=== PATIENT | male | born 1960 | race Caucasian/White ===

== ENCOUNTER → 2016-09-29 | Outpatient (CLI) | payer OTHER ==
[~2016-09-29] VITALS: Ht 175.3 cm; Wt 85.3 kg
[~2016-09-29] MED LIST: AMITRIPTYLINE H10 M3 PO; IBUPROFEN 600600 M1 PO; NORCO 5-325 TA1 EACH PO; PERCOCET 5-3251 EACH PO
--- NOTE | ~2016-09-29 | HPC ---
[facility] [place] [address] PAIN MANAGEMENT CONSULTATION Name: JOSÉ ANDERSON Room #: REG [facility] [id number] Admission: 09/29/16 Attend Phys: Kelly Moulton MD Discharge: Date of : 56 Report #: [id number] THIS REPORT FOR: //name// CC: Shahram Law DATE OF SERVICE: 09/29/2016 FOLLOWUP COMPLAINT: Here for another epidural injection. My pain has returned with pain down into the right shoulder and involving the elbow. FOLLOWUP HISTORY: The patient is a 56-year-old gentleman who has been seen in the pain clinic in the past because of cervical radiculopathy. As you recall, he has had pain and discomfort involving the right shoulder. He works at [employer]. 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 States that he does a significant amount of work with his hands above his hand. He has noted that after the last epidural steroid injection that he had gotten good relief. At this juncture, he has noted a return of pain and discomfort involving the right shoulder down into the right arm with numbness, tingling and weakness to the level of his elbow. He feels that another epidural steroid injection could prove beneficial. He has returned today for evaluation and for another treatment. PHYSICAL EXAMINATION: Blood pressure is 134/88, pulse 65, respiratory rate 16, room air saturation 97%. The patient's BMI is 27.8. He has not fallen since we saw him last. He is experiencing pain and discomfort in the neck and right shoulder area with pain radiating down into his arm. IMPRESSION: Cervical radiculopathy, which improved greater than 50% after the last epidural steroid injection. The patient would like to proceed with another. RECOMMENDATIONS: We discussed treatment options. Risks and benefits again were discussed regarding the cervical epidural steroid injection. He elects to proceed. PROCEDURE NOTE: The patient was placed in the prone position. Fluoroscopy was used to identify the C7-T1 interspace. This area had been sterilely prepped with Betadine and infiltrated with 0.25% bupivacaine. A total of 120 mg triamcinolone was injected. The patient tolerated the procedure well. There were no complications. His pain decreased from 7 to 4 at the time of discharge. There was a total of 12 seconds fluoroscopy time was used. He will follow up in the future as needed. We would like to thank you [place] [address] PAIN MANAGEMENT CONSULTATION Name: JOSÉ ANDERSON [facility] #: [facility] [id number] Admission: 09/29/16 Attend Phys: Kelly Moulton MD Discharge: Date of : 56 Report #: [id number] in his care. A script for amitriptyline 10 mg 1 p.o. at bedtime has been provided as well as oxycodone 5/325 one p.o. q. 6 hours p.r.n. pain. <ELECTRONICALLY SIGNED> By: Kelly Moulton MD 10/17/16 1018 [id number] Kelly Moulton MD /nt
[2016-09-29 14:26] VITALS: BP 134/88
== END | disposition home or self-care (01) ==
LOC: PAIN 07:41
DX: M54.12 Radiculopathy, cervical region (principal); Z87.891 Personal history of nicotine dependence

== ENCOUNTER → 2016-12-08 | Outpatient (CLI) | payer OTHER ==
--- NOTE | ~2016-12-08 | HPC ---
[facility] [address] [address] PAIN MANAGEMENT CONSULTATION Name: JOSÉ ANDERSON Room #: REG [facility] Loida#: [id number] Admission: 12/08/16 Attend Phys: Kelly Moulton MD Discharge: Date of : 56 Report #: [id number] THIS REPORT FOR: //name// CC: Shahram Law DATE OF SERVICE: 12/08/2016 FOLLOWUP COMPLAINT: Pain improved after the last injection, but has returned now. FOLLOWUP HISTORY: The patient is a 56-year-old gentleman who has been seen in the pain clinic because of cervical radiculopathy. He works and his job entails lots of overhead activities. He has noticed that his pain and discomfort has returned with pain radiating down into his right shoulder and to the level of his elbow. He rates it as a 7/10. He describes it as constant, sharp and steady when it is present. It is exacerbating by turning his head, raising his arms over his head. He notes that rest can be helpful. PHYSICAL EXAMINATION: Blood pressure 141/83, pulse 73, respiratory rate 14, room air saturation is 97. The patient has pain and discomfort which is exacerbated by raising his hands over his head. IMPRESSION: Cervical radiculopathy. RECOMMENDATIONS: We discussed treatment options with the patient. Risks and benefits of another epidural steroid injection were again reviewed. The patient gleaned greater than 70% improvement after the last injection. He would like to proceed again. PROCEDURE NOTE: The patient was placed in the prone position. Fluoroscopy was used to identify the C7-T1 interspace. This area had been sterilely prepped with Betadine and infiltrated with 0.25% bupivacaine. A total of 120 mg triamcinolone was injected. The patient tolerated the procedure well. He remained in the pain clinic for an appropriate amount of time. His pain score decreased from 7 to 0 at the time of discharge. He will follow up in the future as needed. We would like to thank you for letting us participate in his care. We hope he continues to improve. By: [id number] Kelly Moulton MD /roman
[2016-12-08 13:53] VITALS: BP 141/83
== END ==
LOC: PAIN 07:10
DX: M54.12 Radiculopathy, cervical region (principal)

== ENCOUNTER → 2017-02-16 | Outpatient (CLI) | payer OTHER ==
[~2017-02-16] VITALS: Ht 175.3 cm; Wt 83.3 kg
--- NOTE | ~2017-02-16 | HPC ---
[facility] [place] [address] PAIN MANAGEMENT CONSULTATION Name: JOSÉ ANDERSON Room #: REG [facility] [id number] Admission: 02/16/17 Attend Phys: Kelly Moulton MD Discharge: Date of : 56 Report #: [id number] THIS REPORT FOR: //name// CC: ANNELIESE Nieves DATE OF SERVICE: 02/16/2017 FOLLOWUP COMPLAINT: "Pain improved after the last cervical epidural steroid injection, but has started to reoccur now with numbness, weakness and tenderness down into my arm. I got greater than 50% improvement after the last injection." FOLLOWUP HISTORY: The patient is a 56-year-old gentleman who has been seen in the pain clinic because of cervical radiculopathy. As you recall, he works [employer]. He does a significant amount of work, which is overhead. With this activity, he notes worsening of pain and discomfort in his neck and in his shoulder with radiation down into his arm. He notes that when he is carrying an object and pain starts in his arm, he must place the object in the other arm or put it down because he is unable to continue to carry it. He describes it as an 8/10 at this juncture. He notes pain is worse when he is turning his head or raising his arms over his head. PHYSICAL EXAMINATION: Blood pressure 153/97, pulse 71, respiratory rate 16, room air saturation is 100. The patient has pain involving the right neck, deltoid, forearm and pain down into his fingers with numbness, weakness and decreased sensitive in his fingers. RECOMMENDATIONS: We discussed treatment options with the patient. He has gleaned greater than 70% improvement in his pain and discomfort after cervical epidural steroid injection. He has returned to the pain clinic for another injection. We will petition his insurance company for a cervical epidural steroid injection today. PROCEDURE NOTE: The patient's insurance company was notified of the patient's recurrence of cervical radiculopathy with numbness, tingling and weakness involving the right hand. The patient has gleaned greater than 70% improvement after cervical epidural steroid injections. He has been denied at this juncture. The patient can return in the future for a cervical epidural steroid injection when his insurance company deems reasonable. [address] [address] PAIN MANAGEMENT CONSULTATION Name: JENNIFERMERLINEJOSÉKASANDRA HULL Room #: REG [facility]edy#: [id number] Admission: 02/16/17 Attend Phys: Kelly Moulton MD Discharge: Date of : 56 Report #: [id number] We would like to thank you for letting us participate in his care. We hope he continues to improve. <ELECTRONICALLY SIGNED> By: Kelly Moulton MD 02/21/17 0810 [id number] [id number] Kelly Moulton MD /nt
[2017-02-16 11:09] VITALS: BP 153/97
== END | disposition home or self-care (01) ==
LOC: PAIN 06:52
DX: M50.90 Cervical disc disorder, unspecified, unspecified cervical region (principal); M54.12 Radiculopathy, cervical region; Z87.891 Personal history of nicotine dependence

== ENCOUNTER → 2017-04-27 | Outpatient (CLI) | payer OTHER ==
[~2017-04-27] VITALS: Ht 175.3 cm; Wt 86.6 kg
--- NOTE | ~2017-04-27 | HPC ---
[facility] [place] [place] [address] PAIN MANAGEMENT CONSULTATION Name: JUSTINJOSÉ COLEMANBON Room #: REG Dario Loida#: [id number] Admission: 04/27/17 Attend Phys: Kelly Moulton MD Discharge: Date of : 56 Report #: [id number] THIS REPORT FOR: //name// CC: Shahram Law DATE OF SERVICE: 04/27/2017 CHIEF COMPLAINT: Pain has returned somewhat. FOLLOWUP HISTORY: The patient is a 57-year-old gentleman who has been seen in the pain clinic because of cervical radiculopathy. As you recall, he works at [employer]. 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 He has noted some worsening of this pain and discomfort, which has returned and he rates it as a 5 most of the time and it is a 7 today. He notes that raising his hands over his head are problematic. He notes pain in his right shoulder with pain radiating down into his right arm and involving his fingers. He also notes pain in the right lower back area. IMPRESSION: Cervical radiculopathy. RECOMMENDATIONS: We discussed treatment options with the patient. The patient has received greater than 70% improvement in the past. He returns today for another epidural steroid injection. Risks and benefits of the procedure were again reviewed with the patient and possible complications were discussed. He elects to proceed. PROCEDURE NOTE: The patient was placed in the prone position. Fluoroscopy was used to identify the C7-T1 interspace. This area had been sterilely prepped with Betadine and infiltrated with 0.25% bupivacaine. A total of 120 mg triamcinolone was injected. The patient tolerated the procedure well. There were no complications. A script for oxycodone 5/325 one p.o. q.8 hours p.r.n. has been written, total of 50 tablets. We would like to thank you for letting us participate in his care. We hope he continues to improve. By: [id number] Kelly Moulton MD /
[2017-04-27 13:07] VITALS: BP 166/98
== END | disposition home or self-care (01) ==
LOC: PAIN 06:33
DX: M54.12 Radiculopathy, cervical region (principal); Z98.890 Other specified postprocedural states; Z87.891 Personal history of nicotine dependence

== ENCOUNTER → 2017-08-10 | Outpatient (CLI) | payer OTHER ==
[~2017-08-10] VITALS: Ht 175.3 cm; Wt 86.2 kg
[~2017-08-10] MED LIST changes: +MEDROLDOSEPACK PO; +MOBIC15 MG PO; +VITAMIN B COMP1 EACH PO
--- NOTE | ~2017-08-10 | HPC ---
[facility] [place] [address] PAIN MANAGEMENT CONSULTATION Name: JOSÉ ANDERSON Room #: REG Dario SinclairLedyMaryLedy#: [id number] Admission: 08/10/17 Attend Phys: Kelly Moulton MD Discharge: Date of : 56 Report #: [id number] THIS REPORT FOR: //name// CC: Shahram Law DATE OF SERVICE: 08/10/2017 FOLLOWUP COMPLAINT: The insurance company has precerted me and I have come for my cervical epidural steroid injection. HISTORY OF PRESENT ILLNESS: The patient is a 57-year-old gentleman who has been followed in the pain clinic. 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 When he does this, he notes worsening of pain and discomfort involving his right arm. It involves his right neck and radiates down into his fingers with numbness and weakness. He has returned to the pain clinic with a worsening of his pain and discomfort. Overall, the injections improve his pain by greater than 50%. He would like to proceed with another epidural steroid injection today. PHYSICAL EXAMINATION: Blood pressure 152/83, pulse 62, respiratory rate 16, room air saturation 100, height 5 feet 9 inches, weight 190 pounds, BMI is 28.1. The patient has pain and discomfort in the right neck with pain radiating down the shoulder, forearm, and numbness and tingling in his fingers. IMPRESSION: Right cervical radiculopathy. RECOMMENDATIONS: We discussed treatment options with the patient. Risks and benefits of the injection were again reviewed. Possible complications, which could include but are not limited to infection, increased muscle soreness, headache, bleeding, nerve damage were discussed. He elects to proceed. PROCEDURE NOTE: The patient was placed in the prone position. Fluoroscopy was used to identify the C7-T1 interspace. This area had been sterilely prepped with Betadine and infiltrated with 0.25% bupivacaine. Total of 120 mg triamcinolone was injected. The patient tolerated the procedure well. There were no complications. A total of 18 seconds fluoroscopy time was used. The patient will follow up in the future as needed. We would like to thank you for letting us participate in his care. We hope he continues to improve. By: [id number] Kelly Moulton MD /CHANDRAKANT
[2017-08-10 12:41] VITALS: BP 156/94
== END | disposition home or self-care (01) ==
LOC: PAIN 06:50
DX: M54.12 Radiculopathy, cervical region (principal); G89.29 Other chronic pain; Z87.891 Personal history of nicotine dependence; Z79.891 Long term (current) use of opiate analgesic

== ENCOUNTER → 2017-12-05 | Outpatient (CLI) | payer OTHER ==
[~2017-12-05] VITALS: Ht 175.3 cm; Wt 85.7 kg
[~2017-12-05] MED LIST changes: +VITAMIN D3400 UNIT PO
--- NOTE | ~2017-12-05 | HPC ---
[facility] [place] [address] PAIN MANAGEMENT CONSULTATION Name: JOSÉ ANDERSON Room #: REG ALFREDO BismarkMaryLedy#: [id number] Admission: 12/05/17 Attend Phys: Kelly Moulton MD Discharge: Date of : 56 Report #: [id number] THIS REPORT FOR: //name// CC: Shahram Law DATE OF SERVICE: 12/05/2017 FOLLOWUP COMPLAINT: Return of the pain in the neck. FOLLOWUP HISTORY: The patient is a 57-year-old gentleman who has been followed in the pain clinic because of pain and discomfort. As you recall, he used to work for [employer] on their campus. He worked heating an air conditioning. As you could imagine, there is quite a bit of looking up and down in motion of the neck and hands in this fashion. Overall, things continue to worsen in these areas for him. Unfortunately, he had to stop working. He no longer works for [employer]. He has noted a worsening of pain and discomfort at this juncture. He has returned to the pain clinic for an epidural steroid injection. Cervical epidural steroid injection in the past have been quite beneficial. He has noted worsening of pain and discomfort in his right shoulder. He is having pain radiating down into his fingers. He rates the pain as 5-6 at this juncture. Turning his head, raising his arms over his head and other activities of daily living are now quite problematic. He would like to proceed with a cervical epidural steroid injection given that he is clean, reasonably good relief from this in the past. ALLERGIES: No known drug allergies. CURRENT MEDICATIONS: 1. Vitamin D. 2. Meloxicam 15 mg 1 p.o. daily, oxycodone 5/325, multivitamin, and B complex. PAIN ASSESSMENT: 1. History of osteoarthritis, has arthritis in his back and neck. 2. Height 5 feet 9, weight 189 pounds, BMI is 27.9. 3. Vital Signs: Blood pressure 135/87, pulse 78, respiratory rate 14 and room air saturation is 100%. 4. Pain intensity 5-6/10. 5. Fall risk. The patient has not fallen in the last 3 months. 6. Blood thinner. The patient is not on a blood thinner. 7. History of hypertension. The patient is being treated for hypertension. 8. Opioid therapy. The patient has not received opioids for greater than 6 weeks. 9. Risk management tool. 10. [place] [address] PAIN MANAGEMENT CONSULTATION Name: JOSÉ ANDERSON Room #: REG [facility]#: [id number] Admission: 12/05/17 Attend Phys: Kelly Moulton MD Discharge: Date of : 56 Report #: [id number] 11. Recreational drug use. The patient denies ever using recreational drugs. 12. Tobacco: The patient is a former smoker. 13. Alcohol. The patient does drink 2-3 beverages daily. PHYSICAL EXAMINATION: GENERAL: The patient is a well-developed, well-nourished white male. He appears his stated age. Orientation, the patient is alert and oriented x 3. APPEARANCE: The patient's affect is appropriate. HEENT: Normocephalic, atraumatic. Extraocular eye muscles intact. Hearing within normal limits. Mucous membranes moist. Sclerae are not injected. NECK: The patient has some limited range of motion of his neck. Cervical extension and flexion do increase some pain and discomfort with some pain radiating down into his arm on the right side at the shoulder. Left and right bending, left and right lateral rotation, left and right rotation all increase pain and discomfort in this area. CHEST: Clear to auscultation. HEART: Regular rate. ABDOMEN: Nontender. MUSCULOSKELETAL: Muscle strength is judged to be 5/5 for the major muscle groups of the upper extremity as well as with corporate banking officer strength with symmetry of muscles. Musculoskeletal without significant scoliosis, kyphosis, or lordosis. The patient has lower extremity muscle strength 5/5 with symmetry. Sensation in the lower extremities is within normal limits and without significant problem. IMPRESSION: 1. Cervical radiculopathy, which has improved in the past with cervical epidural steroid injections. 2. Hypertension. 3. Recent senior living from job secondary to above. RECOMMENDATIONS: We discussed treatment options with the patient. Risks and benefits of an epidural steroid injection were explained. Possible complication of the procedure were discussed. They include but are not limited to infection, increased muscle soreness, headache, bleeding, worsening of pain, cervical headache or muscle trauma/nerve trauma. The patient elects to proceed. PROCEDURE NOTE: The patient was assisted to the treatment room. He was helped on the examination table. He is lying in the prone position. His back was sterilely prepped with Betadine. The fluoroscopy machine using anterior, posterior as well as lateral imaging was used to note the target area. At C7/T1, this area was infiltrated with 0.25% bupivacaine. A 17-gauge Tuohy with loss of resistance technique was used to gain access to the epidural space. There was no CSF, heme or paresthesia. A total of 120 mg triamcinolone was injected. The patient tolerated the procedure well. His pain decreased from 6 to 2 at the time of discharge. He will follow up in the future as needed. [address] [place] [address] PAIN MANAGEMENT CONSULTATION Name: JENNIFERMERLINEJOSÉ DELLA Room #: REG [facility].#: [id number] Admission: 12/05/17 Attend Phys: Kelly Moulton MD Discharge: Date of : 56 Report #: [id number] Total of 11 seconds fluoroscopy time was used. We would like to thank you for letting us participate in his care. We hope he continues to improve. By: [id number] Kelly Moulton MD /nt
[2017-12-05 09:08] VITALS: BP 135/87
== END | disposition home or self-care (01) ==
LOC: PAIN 06:58
DX: M54.12 Radiculopathy, cervical region (principal); I10 Essential (primary) hypertension; Z87.891 Personal history of nicotine dependence; M19.90 Unspecified osteoarthritis, unspecified site; Z79.899 Other long term (current) drug therapy

== ENCOUNTER → 2018-08-28 | Outpatient (CLI) | payer OTHER ==
[~2018-08-28] VITALS: Ht 175.3 cm; Wt 88.5 kg
--- NOTE | ~2018-08-28 | HPC ---
[facility] [place] [address] PAIN MANAGEMENT CONSULTATION Name: JOSÉ ANDERSON Room #: REG [facility] [id number] Admission: 08/28/18 Attend Phys: Kelly Moulton MD Discharge: Date of : 56 Report #: [id number] THIS REPORT FOR: //name// CC: Shahram Law DATE OF SERVICE: 09/04/2018 CHIEF COMPLAINT: The pain has returned and would like to get another injection. FOLLOWUP HISTORY: The patient is a 58-year-old gentleman who has been followed in the pain clinic because of cervical radiculopathy. He has undergone epidural steroid injections in the past, found benefit. He used to work at [employer]. 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 Over the years, he has noted a worsening of his pain and has had pain, which has been problematic since that time. He episodically undergo cervical epidural steroid injection with reasonably good improvement in his pain. He has returned today with a recurrence of pain and would like to undergo another injection. He has not had any problems with the injections in the past. Notes that he is having pain that is radiating down into his right shoulder, right arm and notes some numbness, soreness and tenderness. Rates his pain as 7/10. ALLERGIES: No known drug allergies. CURRENT MEDICATIONS: , Vitamin D3 400 units, Meloxicam 15 mg, Percocet 5/325 one p.o. q.4-6 hours p.r.n. pain. PAIN CLINIC ASSESSMENT/PQRS: 1. History of osteoarthritis. The patient has arthritic changes in his back and neck. He has not been treated for rheumatoid arthritis. 2. Height 5 feet 9 inches, weight 195 pounds. BMI is 28.8. 3. Vital Signs: Blood pressure 147/92, pulse 78, respiratory rate 16, room air saturation 97%. 4. Pain intensity 03/19. 5. Fall risk. The patient has not fallen in the last 3 months. 6. Blood thinner. The patient is not on blood thinning medication. 7. Hypertension. The patient is being treated for hypertension. 8. Opioid therapy. The patient is not on her regimen of opioid medication use over 6 week period of time. 9. Risk assessment tool, low for opioid use. 10. Functional assessment tool. 11. Recreational drug use. The patient denies use of recreational drugs. 12. Alcohol: The patient occasionally drinks alcoholic beverages approximately 2 [place] [address] PAIN MANAGEMENT CONSULTATION Name: JOSÉ ANDERSON Room #: REG [facility]#: [id number] Admission: 08/28/18 Attend Phys: Kelly Moulton MD Discharge: Date of : 56 Report #: [id number] 13. Tobacco: Again, the patient is a former smoker. Does not smoke at this time. PHYSICAL EXAMINATION: GENERAL: The patient is a well-developed, well-nourished white male. Appears his stated age. He is alert and oriented x 3. His affect is appropriate. Speech is fluent. HEENT: Normocephalic, atraumatic. Extraocular eye muscles intact. Sclerae nonicteric. Mucous membranes are moist. NECK: Without adenopathy or JVD. The patient has some pain and discomfort in his neck. Notes increased pain which is radiating down into the left arm with numbness, tingling and discomfort involving the left arm area. Left lateral bending cause some increased pain and discomfort down into the arm. Positive Spurling side. CHEST: Clear to auscultation. HEART: Regular rate. S1, S2. ABDOMEN: Nontender. Bowel sounds present. MUSCULOSKELETAL: Strength judged to be 5/5 for the right upper extremity and 4/5 for the left upper extremity. Lower extremity muscle strength is judged to be 5/5 with symmetry and without neurologic changes. IMPRESSION: 1. Cervical radiculopathy with recurrence that is improved in the past with cervical epidural steroid injections. 2. Hypertension. RECOMMENDATIONS: We discussed treatment options with the patient. Risks and benefits of a cervical epidural steroid injection were again reviewed. They include but are not limited to infection, worsening pain, no improvement in pain of possibility of nerve trauma and paralysis. The patient elects to proceed. PROCEDURE NOTE: The patient was taken to the procedure area. He was placed in the prone position. His pillow was placed under her shoulders to improve positioning for the injection. Fluoroscopy using anterior, posterior as well as lateral viewing were implemented. The patient's back was sterilely prepped with a Betadine solution and allowed to dry. A 0.25% bupivacaine was infiltrated using a 25-gauge needle. A 17-gauge Tuohy with loss of resistance technique using left paracentral direction was implemented. Aspiration was negative. A total of 120 mg triamcinolone was injected. The patient tolerated the procedure well. There were no complications. The patient remained in the pain clinic for an appropriate amount of time. He will follow up in the future as needed. We [address] [address] PAIN MANAGEMENT CONSULTATION Name: JOSÉ ANDERSON Room #: REG ALFREDO Esquivel.#: [id number] Admission: 08/28/18 Attend Phys: Kelly Moulton MD Discharge: Date of : 56 Report #: [id number] would like to thank you for letting us participate in his care. We hope he continues to improve. By: [id number] Kelly Moulton MD /CHANDRAKANT
[2018-08-28 09:07] VITALS: BP 147/92
== END | disposition home or self-care (01) ==
LOC: PAIN 08:46
DX: M54.12 Radiculopathy, cervical region (principal); G89.29 Other chronic pain; I10 Essential (primary) hypertension; Z87.891 Personal history of nicotine dependence; Z98.890 Other specified postprocedural states; Z79.891 Long term (current) use of opiate analgesic

== ENCOUNTER → 2019-01-15 | Outpatient (CLI) | payer OTHER ==
[~2019-01-15] VITALS: Ht 175.3 cm; Wt 85.5 kg
--- NOTE | ~2019-01-15 | HPC ---
[facility] [place] [address] PAIN MANAGEMENT CONSULTATION Name: JUSTINJOSÉ HULL Room #: REG LONDONDario Mariscal#: [id number] Admission: 01/15/19 ������������������ Attend Phys: Kelly Moulton MD Discharge: ������������������ Date of : 56 Report #: [id number] THIS REPORT FOR: //name// CC: Shahram Moulton DATE OF SERVICE: 01/15/2019 CHIEF COMPLAINT: Return of neck and arm pain. HISTORY: The patient is a 58-year-old gentleman who has been followed in the Pain Clinic because of cervical radiculopathy. He has undergone cervical epidural steroid injections and gleaned benefit for a number of months with these procedures. He has noticed recurrence of pain and discomfort involving his right shoulder. It is pain that is radiating down into his right arm. He notes some discomfort down into his fingers. He rates his pain as a 6/10. He notes that if he turns his head to a certain point, pain increases. He notes that if he extends his head backwards, pain is worse and more problematic. He has returned to the Pain Clinic with desire to undergo a cervical epidural steroid injection given that he gleaned greater than 4 months of pain relief after the injections. ALLERGIES: No known drug allergies. CURRENT MEDICATIONS: Vitamin D3 of 400 units, meloxicam 15 mg, Percocet 5/325s one p.o. q. four hours p.r.n. PAIN CLINIC ASSESSMENT/PQRS: 1. The patient has arthritic changes in his neck and back. He is not being treated for rheumatoid arthritis. 2. Height 5 feet 9 inches, weight 188 pounds, BMI is 27.8. 3. Vital signs: Blood pressure 141/91, pulse 70, respiratory rate 14, room air saturation 100%. 4. Pain intensity: 6/10. 5. Fall history: The patient has not fallen in the last 3 months. 6. Blood thinner: The patient is not on a blood thinning medication. 7. Hypertension: The patient is being treated for hypertension. 8. Opioids greater than 6 weeks: The patient is not on a regimen of opioid use. 9. Risk assessment tool for opioid use: Low. 10. Functional assessment tool. 11. Recreational drug use: The patient denies use of recreational drugs. 12. Tobacco: The patient is a former smoker. 13. Alcohol. The patient drinks about 2 beers daily. PHYSICAL EXAMINATION: [facility] [address] [place] [address] PAIN MANAGEMENT CONSULTATION Name: JUSTINJOSÉ DELLA [id number] Admission: 01/15/19 ������������������ Attend Phys: Kelly Moulton MD Discharge: ������������������ Date of : 56 Report #: [id number] GENERAL: The patient is a well-developed, well-nourished white male. He appears his stated age. He is alert and oriented x 3. Affect is appropriate. Speech is fluent. HEENT: Normocephalic, atraumatic. Extraocular eye muscles intact. Sclerae nonicteric. Mucous membranes are moist. NECK: Without adenopathy or JVD. The patient has pain and discomfort in his right neck. Spurling's maneuver is positive. The patient has pain that radiates down into his right shoulder and arm today with some numbness down into the area of the fingers. CHEST: Clear to auscultation without rhonchi or rales. HEART: Regular rate. S1, S2. ABDOMEN: Nontender. Bowel sounds present. MUSCULOSKELETAL: Strength judged to be 5-/5 for the major muscle groups in the upper extremity. Lower extremity muscle strength 5/5. The patient is without significant scoliosis, kyphosis, or lordosis. IMPRESSION: 1. Cervical radiculopathy with pain that is radiating down to the right arm, numbness and tingling, positive Spurling's maneuver. 2. Hypertension. RECOMMENDATIONS: We discussed treatment options with the patient. Risks and benefits of a cervical epidural steroid injection were discussed. They include but are not limited to infection, worsening of pain, no improvement in pain, bleeding, nerve damage. The patient elects to proceed. PROCEDURE NOTE: The patient will return to the Pain Clinic after he has been pre-certified by his insurer. At that time, he will then undergo a cervical epidural steroid injection to help quell his pain and discomfort. We would like to thank you for letting us participate in his care. We hope he continues to improve. ��������������������������������������������� ���������������������������������������� By: ��������������������������������������������� [id number] Kelly Moulton MD /nt
[2019-01-15 10:03] VITALS: BP 141/91
--- NOTE | 2019-01-15 10:17 | NUR ---
Pain Clinic Assessment: 1. History of Osteoarthritis: BACK AND NECK History of Rheumatoid Arthritis: Not Applicable 2. Height: 5 ft. 9 in. 175.3 cm. Weight: 188.6 lb. oz. 85.548 kg. Patient's BMI: 27.8 3. Vital Signs: BP: 141/91 Pulse: 70 Resp: 14 Temp: 02 Sat: 100 ECG Mon: 4. Pain Intensity: 6 5. Fall Risk: Dizziness: Y Needs help standing or walking: N Fallen in the last 3 months: Y Fall risk comments: 6. Patient on Blood Thinner: None 7. History of Hypertension: Y 8. Opioid Therapy greater than 6 weeks: N Opiate Contract Signed: 9. Risk Assessment Tool Provided: LOW 10. Functional Assessment Tool: 11. Recreational Drug Use: Never Drug Type: Tobacco Use: Former Smoker Tobacco Type: Amount or Packs/day: How Many Years: Alcohol Use: Yes Frequency: Daily Quant: 2 BEERS
== END ==
LOC: PAIN 06:49
DX: M54.12 Radiculopathy, cervical region (principal); R20.0 Anesthesia of skin; M79.601 Pain in right arm; I10 Essential (primary) hypertension; Z79.899 Other long term (current) drug therapy

== ENCOUNTER → 2019-01-31 | Outpatient (CLI) | payer OTHER ==
[~2019-01-31] VITALS: Ht 175.3 cm; Wt 83.9 kg
[2019-01-31 10:14] VITALS: BP 135/75
--- NOTE | 2019-01-31 10:18 | NUR ---
Pain Clinic Assessment: 1. History of Osteoarthritis: BACK AND NECK History of Rheumatoid Arthritis: Not Applicable 2. Height: 5 ft. 9 in. 175.3 cm. Weight: 185.0 lb. oz. 83.916 kg. Patient's BMI: 27.3 3. Vital Signs: BP: 135/75 Pulse: 98 Resp: 16 Temp: 02 Sat: 97 ECG Mon: 4. Pain Intensity: 6 5. Fall Risk: Dizziness: N Needs help standing or walking: N Fallen in the last 3 months: N Fall risk comments: 6. Patient on Blood Thinner: None 7. History of Hypertension: Y 8. Opioid Therapy greater than 6 weeks: N Opiate Contract Signed: 9. Risk Assessment Tool Provided: LOW 10. Functional Assessment Tool: 11. Recreational Drug Use: Never Drug Type: Tobacco Use: Former Smoker Tobacco Type: Amount or Packs/day: How Many Years: Alcohol Use: Yes Frequency: Quant:
--- NOTE | 2019-02-12 08:22 | HPC ---
[facility] [address] [place] [address] PAIN MANAGEMENT CONSULTATION Name: JOSÉ ANDERSON Room #: REG Dario Mariscal#: [id number] Admission: 01/31/19 ������������������ Attend Phys: Kelly Moulton MD Discharge: ������������������ Date of : 56 Report #: [id number] THIS REPORT FOR: //name// CC: Shahram Moulton DATE OF SERVICE: 01/31/2019 CHIEF COMPLAINT: Return of neck pain. HISTORY: The patient is a 58-year-old gentleman who has been followed in the pain clinic because of chronic cervical radicular pain. Epidural steroid injections, which have been provided in the past have been beneficial. He has noticed over the last few months some recurrence of pain and discomfort down to his right shoulder and right arm. He describes it as aching, numbness with sore muscles and rates it as a 6/10. It is exacerbated when he turns his head. He has difficulty raising his right arm over his head without worsening of pain. Pain improves somewhat when he rests his arm as well as with use of medications. He notes that if he extends his head backwards, pain is worse. He has returned today to undergo a cervical epidural steroid injection to help quell the pain and discomfort he has been experiencing. ALLERGIES: No known drug allergies. CURRENT MEDICATIONS: Vitamin D3 400 units, Meloxicam 15 mg, Percocet 5/325 mg one p.o. q.4-6 hours p.r.n. PAIN CLINIC ASSESSMENT/PQRS: 1. The patient has some arthritic changes involving his neck. He has had problem in his back in the L5 area and surgery. 2. He is not being treated for rheumatoid arthritis. 3. Height 5 feet 9 inches, weight 185 pounds, BMI is 27. 4. VITAL SIGNS: Blood pressure 135/75, pulse 98, respiratory rate 16, saturation is 97%. 5. Pain intensity 6/10. 6. Fall history: The patient has not fallen in the last 3 months. 7. Blood thinner. The patient is not on a blood thinning medication. 8. Hypertension. The patient is being treated for hypertension. 9. Opioids greater than 6 weeks. The patient is not on opioid medications on a regular basis. 10. Risk assessment tool. Low for opioid use. 11. Functional assessment tool. 12. Recreational drug use. The patient denies use of recreational drugs. 13. Tobacco: The patient is a former smoker. 14. Alcohol: The patient drinks about 2 [place] [address] PAIN MANAGEMENT CONSULTATION Name: JOSÉ ANDERSON Room #: REG [facility]#: [id number] Admission: 01/31/19 ������������������ Attend Phys: Kelly Moulton MD Discharge: ������������������ Date of : 56 Report #: [id number] PHYSICAL EXAMINATION: GENERAL: The patient is a well-developed, well-nourished white male. Appears his stated age. He is alert and oriented x 3. His affect is appropriate. Speech is fluent. He is accompanied by his . HEENT: Normocephalic and atraumatic. Extraocular eye muscles intact. Sclerae nonicteric. Mucous membranes moist. NECK: Without adenopathy or JVD. The patient has some pain and discomfort in his neck. Pain radiates down his right shoulder, right forearm with numbness and tingling. The patient has a positive Spurling maneuver. Pain radiates down to his hand with numbness involving his fingers. CHEST: Clear to auscultation without rhonchi or rales. HEART: Regular rate. S1, S2. ABDOMEN: Nontender. Bowel sounds present. MUSCULOSKELETAL: Upper extremity muscle extremity on the left is 5-/5. Upper extremity, right 4+/5. Lower extremities muscle strength 5/5 both lower extremities. The patient is without scoliosis, kyphosis or lordosis. IMPRESSION: 1. Cervical radiculopathy with pain radiating down to the right arm with numbness and tingling with positive Spurling sign. 2. Hypertension. 3. History of low back surgery or lumbar surgery. RECOMMENDATIONS: We discussed treatment options with the patient. Risks and benefits of an epidural steroid injection in the cervical area were again discussed. The patient has physical findings that are consistent with cervical radiculopathy. He has had a cervical injection in the past and they have gleaned benefits. We discussed the possibility of infection, increased muscle soreness, headache, bleeding, worsening of pain, nerve trauma, weakness, paralysis and the patient elects to proceed. PROCEDURE NOTE: The patient was taken to the procedure area. He was then assisted in getting on the examination table. A pillow was placed under his shoulder, under his chest to improve positioning. Fluoroscopy using anterior, posterior as well as lateral viewing were implemented. The patient's neck was sterilely prepped with a Betadine solution and allowed to dry. A 0.25% bupivacaine was infiltrated at the C7-T1 interspace. Aspiration was negative. The area was numbed. A 17-gauge Tuohy with loss of resistance technique was used to gain access to the epidural space using the mid laminar approach. The direction was at the right shoulder. A total of 120 mg triamcinolone was injected. The patient remained in the pain clinic for an appropriate amount of time. There were no complications. A total of 9 seconds fluoroscopy time was used. The patient's pain decreased to 2 at the time of discharge. He will follow up in the future as needed. [facility] [address] [place] [address] PAIN MANAGEMENT CONSULTATION Name: JOSÉ ANDERSON Room #: REG [facility].#: [id number] Admission: 01/31/19 ������������������ Attend Phys: Kelly Moulton MD Discharge: ������������������ Date of : 56 Report #: [id number] We would like to thank you for letting us participate in his care. We hope he continues to improve. ��������������������������������������������� <ELECTRONICALLY SIGNED> ���������������������������������������� By: Kelly Moulton MD ��������������������������������������������� 02/12/19 0822 0917 0004 Kelly Moulton MD /nt
== END | disposition home or self-care (01) ==
LOC: PAIN 06:50
DX: M54.12 Radiculopathy, cervical region (principal); G89.29 Other chronic pain; I10 Essential (primary) hypertension; Z98.890 Other specified postprocedural states; Z87.891 Personal history of nicotine dependence; Z79.899 Other long term (current) drug therapy

== ENCOUNTER → 2019-05-28 | Outpatient (CLI) | payer OTHER ==
[~2019-05-28] VITALS: Ht 175.3 cm; Wt 85.9 kg
[2019-05-28 10:11] VITALS: BP 149/92
--- NOTE | 2019-05-28 10:25 | NUR ---
Pain Clinic Assessment: 1. History of Osteoarthritis: BACK AND NECK History of Rheumatoid Arthritis: Not Applicable 2. Height: 5 ft. 9 in. 175.3 cm. Weight: 189.4 lb. oz. 85.911 kg. Patient's BMI: 28.0 3. Vital Signs: BP: 149/92 Pulse: 77 Resp: 14 Temp: 02 Sat: 100 ECG Mon: 4. Pain Intensity: 7 5. Fall Risk: Dizziness: N Needs help standing or walking: N Fallen in the last 3 months: N Fall risk comments: 6. Patient on Blood Thinner: None 7. History of Hypertension: Y 8. Opioid Therapy greater than 6 weeks: N Opiate Contract Signed: 9. Risk Assessment Tool Provided: LOW 10. Functional Assessment Tool: 11. Recreational Drug Use: Never Drug Type: Tobacco Use: Former Smoker Tobacco Type: Amount or Packs/day: How Many Years: Alcohol Use: Yes Frequency: Quant:
--- NOTE | 2019-06-06 15:10 | HPC ---
[facility] [place] [address] [place] [address] PAIN MANAGEMENT CONSULTATION Name: JOSÉ ANDERSON Room #: REG LONDONDario Mariscal#: [id number] Admission: 05/28/19 Attend Phys: Kelly Moulton MD Discharge: Date of : 56 Report #: [id number] THIS REPORT FOR: //name// CC: Shahram Moulton DATE OF SERVICE: 05/28/2019 CHIEF COMPLAINT: "I have returned to the pain clinic because my neck and shoulder pain has returned." HISTORY: The patient is a 59-year-old gentleman who has been followed in the pain clinic because of cervical radiculopathy. 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 He has developed cervical radicular pain. It involves in his arm, which radiates down into his right shoulder. He has noticed that his pain has reoccurred. He does get generally months of relief after an epidural steroid injection. He returns today with his pain rated as a 7. He is experiencing pain that continues to radiate down the right shoulder, right forearm deltoid and notes some numbness and tingling down into his fingers. He notes that if he extends his head backwards pain is exacerbated and worsen. He has returned today with the hopes of undergoing an epidural steroid injection to help quell and decrease the pain and discomfort that he has been experiencing. ALLERGIES: No known drug allergies. CURRENT MEDICATIONS: Vitamin D 400 units, meloxicam 15 mg, and Percocet 5/325 mg one p.o. q. 4-6 hours p.r.n. PAIN CLINIC ASSESSMENT AND PQRS: 1. The patient has some arthritic changes involving his neck. The patient has had back problems and has undergone surgery in the L5-S1 area. The patient is not being treated for rheumatoid arthritis. 2. Height 5 feet 9 inches, weight 189 pounds, BMI. 3. Vital Signs: Blood pressure 149/92, pulse 77, respiratory rate 14, room air saturation is 100%. 4. Pain intensity 7/10. 5. Fall history: The patient has not fallen in the last 3 months. 6. Blood thinner. The patient is not on a blood thinning medication. 7. Hypertension. The patient is being treated for hypertension. 8. Opioids greater than 6 weeks. The patient received medication from one source, pain clinic. 9. Risk assessment tool, low for opioid use. 10. Functional assessment tool. 11. Recreational drug use. The patient denies use of recreational drugs. [address] [address] PAIN MANAGEMENT CONSULTATION Name: JOSÉ ANDERSONBON Room #: REG [facility]#: [id number] Admission: 05/28/19 Attend Phys: Kelly Moulton MD Discharge: Date of : 56 Report #: [id number] 12. Tobacco: The patient is a former smoker. 13. Alcohol: The patient drinks alcoholic beverages on occasion. PHYSICAL EXAMINATION: GENERAL: The patient is a well-developed, well-nourished white male. Appears his stated age. He is alert and oriented x 3. His affect is appropriate. Speech is fluent. HEENT: Normocephalic, atraumatic. Extraocular eye muscles intact. Sclerae nonicteric. Mucous membranes are moist. The patient is unaccompanied. NECK: With decreased range of motion. Positive Spurling sign with pain radiating down to the right arm. He has pain and discomfort down into the right shoulder, arm, forearm with numbness and tingling in his fingers. The patient notes some weakness in his right arm. CHEST: Clear to auscultation without rhonchi or rales. HEART: Regular rate. ABDOMEN: Nontender. Bowel sounds present. MUSCULOSKELETAL: Upper extremity muscle strength judged to be 5/5 for the major muscle groups in the left and 4+/5 for the major muscle groups on the right. Lower extremity muscle strength judged to be 5/5 for the major muscle groups in the lower extremity without scoliosis, kyphosis or lordosis. IMPRESSION: 1. Cervical radiculopathy with return of pain radiating down to the right arm with numbness, tingling and positive Spurling sign. 2. Hypertension. 2. History of low back pain, status post lumbar surgery, stable at this juncture. RECOMMENDATIONS: We discussed treatment options with the patient. Risks and benefits of a cervical epidural steroid injection were again reviewed. They include but are not limited to infection, worsening pain, no improvement in pain, bleeding, and nerve damage with paralysis. The patient would like to proceed with another epidural steroid injection. He has gleaned a number of great months of pain benefit after each injection. He will return to the Pain Clinic after his insurance carrier provides us with precertification. He will then undergo a cervical epidural steroid injection to help control and combat his pain. We would like to thank you for letting us participate in his care. We hope he continues to improve. <ELECTRONICALLY SIGNED> By: Kelly Moulton MD 06/06/19 1510 1751 [id number] Kelly Moulton MD /nt
== END ==
LOC: PAIN 07:00
DX: M54.12 Radiculopathy, cervical region (principal); I10 Essential (primary) hypertension; M54.5 Low back pain; Z79.899 Other long term (current) drug therapy

== ENCOUNTER → 2019-06-11 | Outpatient (CLI) | payer OTHER ==
[~2019-06-11] VITALS: Ht 175.3 cm; Wt 86.3 kg
[2019-06-11 12:42] VITALS: BP 157/95
--- NOTE | 2019-06-11 12:48 | NUR ---
Pain Clinic Assessment: 1. History of Osteoarthritis: BACK AND NECK History of Rheumatoid Arthritis: Not Applicable 2. Height: 5 ft. 9 in. 175.3 cm. Weight: 190.2 lb. oz. 86.274 kg. Patient's BMI: 28.1 3. Vital Signs: BP: 157/95 Pulse: 85 Resp: 18 Temp: 02 Sat: 97 ECG Mon: 4. Pain Intensity: 7 5. Fall Risk: Dizziness: Y Needs help standing or walking: N Fallen in the last 3 months: N Fall risk comments: 6. Patient on Blood Thinner: None 7. History of Hypertension: Y 8. Opioid Therapy greater than 6 weeks: N Opiate Contract Signed: 9. Risk Assessment Tool Provided: LOW 10. Functional Assessment Tool: 11. Recreational Drug Use: Never Drug Type: Tobacco Use: Former Smoker Tobacco Type: Amount or Packs/day: How Many Years: Alcohol Use: Yes Frequency: Quant:
--- NOTE | 2019-06-20 08:26 | HPC ---
[facility] [place] [address] [place] [address] PAIN MANAGEMENT CONSULTATION Name: JOSÉ ANDERSON Room #: REG ALFREDO Loida#: [id number] Admission: 06/11/19 Attend Phys: Kelly Moulton MD Discharge: Date of : 56 Report #: [id number] THIS REPORT FOR: //name// CC: Shahram Moulton DATE OF SERVICE: 06/11/2019 PRIMARY CARE PHYSICIAN: Shahram Shirley DO CHIEF COMPLAINT: Here for a cervical epidural steroid injection. "I am having some pain in my left great toe. I dropped a freezer on it." HISTORY: The patient is a 59-year-old gentleman who has been followed in the pain clinic in the past because of cervical radiculopathy. He generally gets good pain relief as a result of the epidural steroid injections. He has been pre-certified his insurance carrier to undergo an injection today. The patient states that he was moving a refrigerator with a friend. He did not have on steel toed shoes. He dropped the refrigerator on his left toe. His toe has swollen up and has been quite problematic for the last few days. The nail on top is threatening to come off. Toe is red and very sore to touch. He is not sure that there is an infection going on, but he has had to make a modification to his shoe to keep the pressure from touching his toe, which is quite painful and problematic. ALLERGIES: No known drug allergies. CURRENT MEDICATIONS: Vitamin D 400 units, meloxicam 15 mg, Percocet 5/325 mg one p.o. q. 4-6 hours p.r.n. PAIN CLINIC ASSESSMENT/PQRS: 1. The patient has some arthritic changes involving his neck. He has had some back problems in the past and has undergone back surgery in the L5-S1 dermatomal distribution area. The patient is not being treated for rheumatoid arthritis. 2. Height 5 feet 9 inches, weight 190 pounds, BMI is 28.1. 3. Vital signs: Blood pressure 157/95, pulse 85, respiratory rate 18, room air saturation 97%. 4. Pain intensity 03/19. 5. Fall history: The patient has not fallen in the last 3 months. 6. Blood thinner. The patient is not on a blood thinning medication. 7. Hypertension. The patient is being treated for hypertension. 8. Opioids greater than 6 weeks. The patient is not receiving opioids on a regular basis. 9. Risk assessment tool, low for opioid use. 10. Functional assessment tool. 11. Recreational drug use[place] [address] PAIN MANAGEMENT CONSULTATION Name: JUSTINJOSÉ DELLA Room #: REG [facility].#: [id number] Admission: 06/11/19 Attend Phys: Kelly Moulton MD Discharge: Date of : 56 Report #: [id number] 12. Tobacco: The patient is a former smoker. 13. Alcohol: The patient drinks alcoholic beverages on occasion. PHYSICAL EXAMINATION: GENERAL: The patient is a well-developed, well-nourished white male. Appears his stated age. He is alert and oriented x 3. His affect is appropriate. Speech is fluent. HEENT: Normocephalic, atraumatic. Extraocular eye muscles intact. Sclerae nonicteric. Mucous membranes are moist. NECK: With decreased range of motion. Positive Spurling sign with pain that radiates down to his right arm. He has some discomfort into his right shoulder, arm, forearm and numbness down into his fingers. CHEST: Clear to auscultation without rhonchi or rales. HEART: Regular rate. ABDOMEN: Nontender. Bowel sounds present. MUSCULOSKELETAL: Upper extremity muscle strength judged to be 5-/5 for the major muscle groups in the upper extremity on the left and 4+/5 for the major muscle groups on the right. The patient has a very sore left toe. He has a shoe with a cutout to keep the pressure of the leather off of his toe. The toenail appears that it will be lost. There is some redness from the tip of his toe up into the first joint. It is hard to determine whether or not there might be some infection going on underneath there. He feels that at some point in the near future he may have to lie/drill a small hole in the toenail to let the pressure off. IMPRESSION: 1. Right toe with pain as a result of dropping a freezer on the toe. It appears that there might be some possibility of infection. 2. History of cervical radiculopathy with pain that radiates down to the right arm with numbness, tingling and positive Spurling sign. 3. Hypertension. 4. History of back pain, status post lumbar surgery, stable at this juncture. RECOMMENDATIONS: We discussed treatment options with the patient and his . Possibility of decreasing ones immunity because of the steroids might cause a worsening of his toe problem. If he has an infection this might exacerbate the infection. I think it would be most prudent to have the patient return after this toe issue has resolved. He is scheduled to undergo surgery with his feather edger. He states that he has had some surgery on his lenses which have been replaced. He is scheduled to be seen in the near future in regards to that problem. Once the patient finds that his toe problem has resolved, he will then return to the pain clinic at which time he will then undergo an epidural steroid injection. [address] [address] PAIN MANAGEMENT CONSULTATION Name: JOSÉ ANDERSONBON Room #: REG [facility].#: [id number] Admission: 06/11/19 Attend Phys: Kelly Moulton MD Discharge: Date of : 56 Report #: [id number] We would like to thank you for letting us participate in his care. We hope he continues to improve. <ELECTRONICALLY SIGNED> By: Kelly Moulton MD 06/20/19 0826 1414 1716 Kelly Moulton MD /PMT
== END ==
LOC: PAIN 07:24
DX: M79.645 Pain in left finger(s) (principal); M54.12 Radiculopathy, cervical region; I10 Essential (primary) hypertension; M54.9 Dorsalgia, unspecified; Z79.899 Other long term (current) drug therapy

== ENCOUNTER → 2019-06-27 | Outpatient (CLI) | payer OTHER ==
[~2019-06-27] VITALS: Ht 175.3 cm; Wt 86.5 kg
[2019-06-27 10:56] VITALS: BP 132/88
--- NOTE | 2019-06-27 11:28 | NUR ---
Pain Clinic Assessment: 1. History of Osteoarthritis: BACK AND NECK History of Rheumatoid Arthritis: Not Applicable 2. Height: 5 ft. 9 in. 175.3 cm. Weight: 190.6 lb. oz. 86.456 kg. Patient's BMI: 28.1 3. Vital Signs: BP: 132/88 Pulse: 75 Resp: 16 Temp: 02 Sat: 98 ECG Mon: 4. Pain Intensity: 6-7 5. Fall Risk: Dizziness: N Needs help standing or walking: N Fallen in the last 3 months: N Fall risk comments: 6. Patient on Blood Thinner: None 7. History of Hypertension: Y 8. Opioid Therapy greater than 6 weeks: N Opiate Contract Signed: 9. Risk Assessment Tool Provided: LOW 10. Functional Assessment Tool: 11. Recreational Drug Use: Never Drug Type: Tobacco Use: Former Smoker Tobacco Type: Amount or Packs/day: How Many Years: Alcohol Use: Yes Frequency: Quant:
--- NOTE | 2019-07-18 08:25 | HPC ---
[facility] [place] [address] PAIN MANAGEMENT CONSULTATION Name: JOSÉ ANDERSON Room #: REG LONDONDario Esquivel.#: [id number] Admission: 06/27/19 Attend Phys: Kelly Moulton MD Discharge: Date of : 56 Report #: [id number] THIS REPORT FOR: //name// CC: Shahram Moulton DATE OF SERVICE: 06/27/2019 CHIEF COMPLAINT: Pain has returned to the neck. I would like to get another injection. HISTORY: The patient is a 59-year-old gentleman who has been followed in the Pain Clinic. He suffers from cervical radiculopathy. He has undergone epidural steroid injections in the past, which have been quite beneficial. The patient recently injured his toe. Because of the infection concern, he delayed an epidural injection. He has returned today stating that the toe has healed up nicely and does not appear to have an infection at this juncture. ALLERGIES: No known drug allergies. CURRENT MEDICATIONS: Vitamin D 400 units, meloxicam 15 mg, Percocet 5/325 mg one p.o. q. 4-6 hours p.r.n. PAIN CLINIC ASSESSMENT/PQRS: 1. The patient has some arthritic changes involving his neck. He has had some problems with his back in the past and undergone back surgery at the L5-S1 dermatomal area. 2. The patient is not being treated for rheumatoid arthritis. 3. Height 5 feet 9 inches, weight 190 pounds, BMI is 28.1. 4. Vital Signs: Blood pressure 132/88, pulse 77, respiratory rate 16, and room air saturation 98%. 5. Pain intensity, 6-03/19. 6. Fall risk. The patient has not fallen in the last 3 months. 7. Blood thinner. The patient is not on a blood thinning medication. 8. Hypertension. The patient is being treated for hypertension. 9. Opioids greater than 6 weeks. The patient is not on an opioid regimen on a regular basis. 10. Risk assessment tool, low for opioid use. 11. Functional assessment tool. 12. Recreational drug use: The patient denies. 13. Tobacco: The patient is a former smoker. 14. Alcohol: The patient drinks alcoholic beverages on occasion. PHYSICAL EXAMINATION: GENERAL: The patient is a well-developed, well-nourished white male. Appears his stated age. He is alert and oriented x 3. [place] [address] PAIN MANAGEMENT CONSULTATION Name: JOSÉ ANDERSON [id number] Admission: 06/27/19 Attend Phys: Kelly Moulton MD Discharge: Date of : 56 Report #: [id number] Speech is fluent. HEENT: Normocephalic, atraumatic. Extraocular eye muscles intact. Sclerae nonicteric. Mucous membranes are moist. NECK: With decreased range of motion. Positive Spurling sign and has pain that radiates down into his right arm. He has some discomfort in the right shoulder. Has discomfort in the arm, forearm with numbness down into his fingers. CHEST: Clear to auscultation without rhonchi or rales. HEART: Regular rate. ABDOMEN: Nontender. Bowel sounds present. MUSCULOSKELETAL: Upper extremity muscle strength judged to be 5/5 for the major muscle groups in the upper extremity, 4+/5 on the left side. The patient has a well-healing left toe. There appears to be black and blue areas. There does not seem as much redness as he had had previously. It does not show any signs of infection. The patient has not had physical signs of fever, chills or signs of infection. IMPRESSION: 1. Cervical radiculopathy. 2. Right toe pain after dropping a freezer on the great toe without signs of infection today. 3. Cervical pain with radiation down to the right arm with numbness and tingling. Positive Spurling sign. 4. Hypertension. 5. History of back pain, status post lumbar surgery. RECOMMENDATIONS: We discussed treatment options with the patient. Risks and benefits of a cervical epidural steroid injection were again reviewed. They include but are not limited to infection, worsening pain, no improvement in pain, nerve damage, bleeding and the patient elects to proceed. PROCEDURE NOTE: The patient was taken to the procedure area. He was then assisted in getting on the examination table. His neck was sterilely prepped with a Betadine solution. Fluoroscopy using anterior, posterior as well as lateral viewing were implemented. A skin wheal at the C7-T1 was provided. A 17-gauge Tuohy with loss of resistance technique was then used to gain access to the cervical epidural area. There was no CSF, heme or paresthesia. A total of 120 mg triamcinolone was injected. The patient tolerated the procedure well. There were no complications. He remained in the Pain Clinic for an appropriate amount of time. He will follow up in the future as needed. We would like to thank you for letting us participate in his care. We hope he continues to improve. <ELECTRONICALLY SIGNED> By: Kelly Moulton MD 07/18/19 [id number] Kelly Moulton MD /nt
== END | disposition home or self-care (01) ==
LOC: PAIN 06:59
DX: M54.12 Radiculopathy, cervical region (principal); G89.29 Other chronic pain; I10 Essential (primary) hypertension; Z98.890 Other specified postprocedural states; Z87.891 Personal history of nicotine dependence; Z79.899 Other long term (current) drug therapy; Z79.891 Long term (current) use of opiate analgesic

== ENCOUNTER 2019-07-04 11:09 | Emergency (ER) | payer OTHER ==
[~2019-07-04] VITALS: Ht 172.7 cm; Wt 74.8 kg
[2019-07-04 13:05] VITALS: BP 175/99
== END 2019-07-04 13:34 | disposition home or self-care (01) ==
LOC: ER 11:09
DX: S92.425A Nondisplaced fracture of distal phalanx of left great toe, initial encounter for closed fracture (principal); Z85.828 Personal history of other malignant neoplasm of skin; Z87.891 Personal history of nicotine dependence; W20.8XXA Other cause of strike by thrown, projected or falling object, initial encounter; Y93.89 Activity, other specified; Y92.89 Other specified places as the place of occurrence of the external cause; Y99.8 Other external cause status

== ENCOUNTER → 2019-11-05 | Outpatient (CLI) | payer OTHER ==
[~2019-11-05] VITALS: Ht 175.3 cm; Wt 88.0 kg
[~2019-11-05] MED LIST changes: +IBUPROFEN 200200 M1 PO
[2019-11-05 08:59] VITALS: BP 155/89
--- NOTE | 2019-11-05 09:21 | NUR ---
Pain Clinic Assessment: 1. History of Osteoarthritis: BACK AND NECK History of Rheumatoid Arthritis: Not Applicable 2. Height: 5 ft. 9 in. 175.3 cm. Weight: 194.0 lb. oz. 87.998 kg. Patient's BMI: 28.6 3. Vital Signs: BP: 155/89 Pulse: 70 Resp: 18 Temp: 02 Sat: 100 ECG Mon: 4. Pain Intensity: 7 5. Fall Risk: Dizziness: N Needs help standing or walking: N Fallen in the last 3 months: N Fall risk comments: 6. Patient on Blood Thinner: None 7. History of Hypertension: Y 8. Opioid Therapy greater than 6 weeks: N Opiate Contract Signed: 9. Risk Assessment Tool Provided: LOW 10. Functional Assessment Tool: 11. Recreational Drug Use: Never Drug Type: Tobacco Use: Former Smoker Tobacco Type: Cigarettes Amount or Packs/day: 1 How Many Years: 40 Alcohol Use: Yes Frequency: Weekly Quant: 6 BEERS
== END | disposition home or self-care (01) ==
LOC: PAIN 06:41
DX: M54.12 Radiculopathy, cervical region (principal); G89.29 Other chronic pain; Z87.891 Personal history of nicotine dependence; Z98.890 Other specified postprocedural states; Z79.899 Other long term (current) drug therapy

== ENCOUNTER → 2020-12-22 | Outpatient (CLI) | payer OTHER ==
[~2020-12-22] VITALS: Ht 175.3 cm; Wt 88.5 kg
[~2020-12-22] MED LIST changes: +OXYCODONE-ASPI1 EAC1 PO; +ROXICODONE5 MG PO
[2020-12-22 08:49] VITALS: BP 165/89
--- NOTE | 2020-12-22 09:17 | NUR ---
Pain Clinic Assessment: 1. History of Osteoarthritis: BACK AND NECK History of Rheumatoid Arthritis: Not Applicable 2. Height: 5 ft. 9 in. 175.3 cm. Weight: 195.2 lb. oz. 88.542 kg. Patient's BMI: 28.8 3. Vital Signs: BP: 165/89 Pulse: 78 Resp: 16 Temp: 02 Sat: 99 ECG Mon: 4. Pain Intensity: 10 5. Fall Risk: Dizziness: N Needs help standing or walking: N Fallen in the last 3 months: N Fall risk comments: 6. Patient on Blood Thinner: None 7. History of Hypertension: Y 8. Opioid Therapy greater than 6 weeks: N Opiate Contract Signed: 9. Risk Assessment Tool Provided: LOW 10. Functional Assessment Tool: 11. Recreational Drug Use: Never Drug Type: Tobacco Use: Former Smoker Tobacco Type: Amount or Packs/day: How Many Years: Alcohol Use: Yes Frequency: Daily Quant: 3
== END | disposition home or self-care (01) ==
LOC: PAIN 08:29
PROVIDERS: ATTEND Anesthesiology Pain Medicine
DX: M79.18 Myalgia, other site (principal); I10 Essential (primary) hypertension; M19.90 Unspecified osteoarthritis, unspecified site; Z85.828 Personal history of other malignant neoplasm of skin; Z98.890 Other specified postprocedural states; Z79.899 Other long term (current) drug therapy; Z87.891 Personal history of nicotine dependence